=== PATIENT | female | born 1950 | race Caucasian/White ===

== ENCOUNTER 2016-08-31 08:10 | Emergency (ER) | payer MEDICARE, OTHER ==
[2016-08-31 08:59] LABS: ABSOLUTE NEUTROPHIL COUNT 4.1 K/mm3 (1.8-7.7); BASO % 0.4 % (0.2-1.0); EOS % 0.6 % (0.9-2.9); HEMATOCRIT 38.5 % (37.0-47.0); HEMOGLOBIN 12.3 gm/l (12.0-16.0); IMM NEUT% 0.3 % (0-1); LYMPH # 2.3 (1.0-4.8); LYMPH % 32.7 % (15-45); MEAN CELL VOLUME 84.2 fl (81.0-99.0); MEAN CORPUSCULAR HEMOGLOBIN 26.9 pg (27.0-31.0); MEAN CORPUSCULAR HGB CONC 31.9 g/dl (33.0-37.0); MEAN PLATELET VOLUME 9.9 fl (7.4-10.4); MONO # 0.6 (0.0-0.8); MONO % 7.9 % (4-12); NEUT % 58.1 % (43-75); PLATELET COUNT 196 K/mm3 (130-400); RED CELL DISTRIBUTION WIDTH 13.6 % (11.5-14.5)
[2016-08-31] MEDS ORDERED: ONDANSETRON 4 MG/2ML 2 ML VIAL ONE ×2 (09:07→11:23)
[2016-08-31] MEDS ORDERED: LACTATED RINGERS 1,000 ML ONE (09:07)
[2016-08-31 09:14] LABS: ALB/GLOB RATIO 1.3 (>1.0); CALCIUM 9.2 mg/dL (8.6-10.3); MAGNESIUM 1.8 mg/dL (1.9-2.7)
[2016-08-31] MEDS ORDERED: MAGNESIUM SULFATE 2 G/50 ML 50 ML IV ONE (10:00)
[2016-08-31 11:41] LABS: SPECIFIC GRAVITY 1.015 (1.001-1.030); URINE BILIRUBIN NEGATIVE (NEGATIVE); URINE BLOOD 1+ (NEGATIVE); URINE GLUCOSE (UA) NEGATIVE (NEGATIVE); URINE LEUKOCYTE ESTERASE 2+ (NEGATIVE); URINE NITRITE NEGATIVE (NEGATIVE); URINE PROTEIN TRACE (NEGATIVE)
[2016-08-31 11:42] LABS: URINE APPEARANCE HAZY; URINE COLOR YELLOW; URINE UROBILINOGEN 4 mg/dL (0-1 mg/dl)
[2016-08-31 11:50] LABS: URINE EPITHELIAL CELLS 15-20 /hpf; URINE WBC 30-40 /hpf
[2016-08-31 11:51] LABS: URINE BACTERIA 4+
[2016-08-31 12:12] LABS: SPECIFIC GRAVITY 1.015 (1.001-1.030); URINE BILIRUBIN NEGATIVE (NEGATIVE); URINE BLOOD 1+ (NEGATIVE); URINE GLUCOSE (UA) NEGATIVE (NEGATIVE); URINE LEUKOCYTE ESTERASE NEGATIVE (NEGATIVE); URINE NITRITE NEGATIVE (NEGATIVE); URINE PROTEIN NEGATIVE (NEGATIVE)
[2016-08-31 12:13] LABS: URINE APPEARANCE CLEAR; URINE COLOR YELLOW; URINE UROBILINOGEN 4 mg/dL (0-1 mg/dl)
[2016-08-31 12:22] LABS: URINE BACTERIA 0; URINE EPITHELIAL CELLS 0-1 /hpf; URINE WBC NEG /hpf
== END 2016-08-31 12:51 | disposition home or self-care (01) ==
LOC: ED 08:10
DX: R11.2 Nausea with vomiting, unspecified (principal); E83.42 Hypomagnesemia; R19.7 Diarrhea, unspecified; E11.9 Type 2 diabetes mellitus without complications; I25.2 Old myocardial infarction
CPT/HCPCS: 85025; 80053; 83735; 84484 ×2; 81001 ×2; 96375; 96376; 99284 ×2; 96361; 96365; 96366; 51701; 93005; J2405 ×2; J7120; J3475

== ENCOUNTER 2016-09-01 18:23 | Emergency (ER) | payer MEDICARE, OTHER ==
[2016-09-01] MEDS ORDERED: PROMETHAZINE HCL 25 MG/ML VIAL ONE (19:25)
== END 2016-09-01 19:48 | disposition home or self-care (01) ==
LOC: ED 18:23
DX: R11.2 Nausea with vomiting, unspecified (principal); R19.7 Diarrhea, unspecified; E11.9 Type 2 diabetes mellitus without complications; I25.2 Old myocardial infarction
CPT/HCPCS: 99283 ×2; 96372; J2550

== ENCOUNTER 2016-09-05 09:23 | Day surgery (SDC) | payer MEDICARE, OTHER ==
[~2016-09-05 09:23] MED LIST: LACTATED RINGERS 1,000 ML IV SCH
[2016-09-05] MEDS ORDERED: PROPOFOL 20 ML IV ONE (09:57)
[2016-09-05 14:28] LABS: HELICOBACTER PYLORII DETECTION NEGATIVE (NEGATIVE)
--- NOTE | 2016-09-09 14:04 | SURGPATH ---
[facility] [address] [place] [id number] Patient Name: ZEYAD SAMSON MR#: [id number] : 1950 Gender: F Specimen #: [id number] Collected: 09/05/2016 Received: 09/06/2016 Reported: 09/09/2016 Submitting Phys: RONNY TUBBS Copy To Phys: [facility] Clinical History / Pre-Operative Diagnosis: EPIGASTRIC PAIN; NAUSEA; VOMITING; RULE OUT GIARDIA, CELIAC SPRUE AND GASTRITIS Specimen Source / Surgical Procedure Performed: #1-DUODENAL BIOPSY; #2-ANTRAL BIOPSY Interpretation: 1. DUODENUM, BIOPSY: - NO DIAGNOSTIC ABNORMALITIES 2. STOMACH, ANTRUM, BIOPSY: - REACTIVE GASTROPATHY Electronically Signed Out Brit Edwards M.D. Gross Description: #1 The specimen is received in a formalin filled container labeled with the patient's name and "duodenal biopsy". Two boyer biopsies are 0.3 and 0.5 cm. Totally embedded in cassette #1. #2 The specimen is received in a formalin filled container labeled with the patient's name and "antral biopsy". A single boyer biopsy is 0.5 cm. Totally embedded in cassette #2. Abdullahi Swain Microscopic Description: Part 1: Sections show duodenal mucosa with overall intact architecture with a villous to crypt ratio of three to one. No increased intraepithelial lymphocytes, gastric metaplasia, active duodenitis, or evidence of Giardia are seen on routine stain. No malignancy is seen. Part 2: Sections show gastric antral and oxyntic mucosa with overall intact architecture. No significant active or chronic inflammation is seen. No Helicobacter organisms are seen on routine stain. No dysplasia or malignancy is seen. Mild reactive gastropathy is seen with reactive foveolar hyperplasia. 1: 62769 2: 88146 K31.9
== END 2016-09-05 10:42 | disposition home or self-care (01) ==
LOC: SDC 09:23
PROVIDERS: ATTEND Internal Medicine Gastroenterology
PROC: 0DB68ZX Excision of Stomach, Via Natural or Artificial Opening Endoscopic, Diagnostic (ICD-10-PCS; principal; 2016-09-05)
PROC: 0DB78ZX Excision of Stomach, Pylorus, Via Natural or Artificial Opening Endoscopic, Diagnostic (ICD-10-PCS; 2016-09-05)
DX: K29.70 Gastritis, unspecified, without bleeding (principal); K31.9 Disease of stomach and duodenum, unspecified; K26.9 Duodenal ulcer, unspecified as acute or chronic, without hemorrhage or perforation; E11.9 Type 2 diabetes mellitus without complications; I25.2 Old myocardial infarction; Z88.0 Allergy status to penicillin; Z91.040 Latex allergy status; Z79.84 Long term (current) use of oral hypoglycemic drugs; Z79.899 Other long term (current) drug therapy; Z79.82 Long term (current) use of aspirin; Z87.891 Personal history of nicotine dependence